=== PATIENT | female | born 1990 | race Caucasian/White ===

== ENCOUNTER 2024-09-19 13:03 | Emergency (ER) | payer MEDICAID, SELFPAY ==
--- NOTE | ~2024-09-19 | CT_ITS ---
EXAMINATION: CT HEAD WITHOUT CONTRAST CLINICAL INFORMATION: Headache. COMPARISON: None available. TECHNIQUE: Contiguous axial imaging was performed from the skull base to vertex without intravenous administration of contrast. This CT examination was performed using dose optimization techniques as appropriate, variously including the following: *Automated exposure control *Adjustment of mA and/or kV according to patient size (this includes techniques or standardized protocols for targeted exams where dose is matched to indication/reason for exam; i.e. extremities or head) *Use of iterative reconstruction technique DLP: 581 mGy-cm FINDINGS: No intracranial hemorrhage, large infarction, or mass lesion is seen. No extra-axial collection is appreciated. The ventricles are normal in size and configuration without evidence of hydrocephalus. Complete opacification of the right maxillary sinus and of a right anterior ethmoid air cell. The mastoid air cells are clear. CT/CT head/brain wo IV con IMPRESSION: No acute intracranial finding. Complete opacification of the right maxillary sinus and of a right anterior ethmoid air cell. Electronically signed by: Lukas Escalante MD 09/19/2024 04:01 PM [facility]
[2024-09-19 13:11] VITALS: BP 126/72; PULSE 122; RESP 16; TEMP 36.4; O2SAT 100; BMI 31.6
--- NOTE | 2024-09-19 13:14 | ED.HA ---
HPI - Headache General Chief Complaint: Headache Stated Complaint: headache Time Seen by Provider: 09/19/24 19:01 Source: patient Limitations: no limitations History of Present Illness ED Provider: Ada Cazares PA-C HPI Narrative: 34-year-old female presents with headache x5 days. Headache is posterior and right-sided, has been constant. Denies neck pain, fever, heavy lifting, recent cough or cold symptoms. Denies head trauma or use of blood thinners. Related Data Allergies Allergy/AdvReac Type Severity Reaction Status Date / Time No Known Allergies Allergy Verified 09/19/24 13:15 Review of Systems Review of Systems: Yes all other systems are reviewed and are negative Constitutional: Constitutional: Denies fatigue, Denies fever(s) and Reports headache(s) Eyes: Eyes: Denies change in vision ENT: Reports headache(s), Denies neck pain, Denies sinus pain and Denies sinus pressure Cardiovascular: Cardiovascular: Denies chest pain and Denies dyspnea Respiratory: Respiratory: Denies cough and Denies dyspnea Gastrointestinal: Gastrointestinal: Denies abdominal pain, Reports nausea and Denies vomiting Musculoskeletal: Musculoskeletal: Denies neck pain, Denies numbness and Denies tingling Neurologic: Reports headache(s), Denies numbness and Denies tingling Endocrine: Endocrine: Denies fatigue [facility] Past Medical History Attestation statement: The following information was validated with the patient. Social History Social History Smoked in Last 30 Days: No Advance Directives: No Advance Directives Information Provided: No Patient : No Physical Exam Vital Signs: Vital Signs: Last Vital Signs Temp 97.9 F 09/19/24 19:14 Pulse 84 09/19/24 19:14 Resp 16 09/19/24 19:14 BP 118/70 09/19/24 19:14 Pulse Ox 98 09/19/24 19:14 O2 Del Method Room Air 09/19/24 19:14 BMI result Body Mass Index 31.6 Const: Other: Alert, well-appearing Orientation/consciousness: patient oriented x3 Neck: Other: Full range of motion Resp: Other: Nonlabored respirations Cardio: Other: Normal peripheral perfusion Skin: Other: Warm dry no rash Neuro: General: patient oriented x3, gait normal, no focal motor deficits and CN's II-XI intact bilaterally Psych: Other: Calm cooperative Course Course Course Narrative: This is an RME: Additional HPI, ROS, PE not included below will be deferred to primary provider. RME assessment and note performed by: Luciana Borjas PA-C This is a [id number]-female, with no known medical problems, who presents emergency department with complaints of right-sided headache x 5 days. Patient found to be tachycardic at 122 she has no chest pain or shortness for breath. no focal deficits on exam. Plan: Labs, EKG, CT head Medications Administered Discontinued Medications Generic Name Dose Route Start Last Admin Trade Name Mauri PRN Reason Stop Dose Admin Dexamethasone Sodium Phosphate 10 mg 09/19/24 19:15 09/19/24 19:47 Dexamethasone Sod Phosphate 10 Mg/Ml Vial IVPUSH 09/19/24 19:16 10 mg ONCE ONE Administration Diphenhydramine HCl 25 mg 09/19/24 19:15 09/19/24 19:47 Diphenhydramine Hcl 50 Mg/Ml Vial IVPUSH 09/19/24 19:16 25 mg ONCE ONE Administration Sodium Chloride 500 mls @ 500 mls/hr 09/19/24 19:15 09/19/24 20:34 Ns IV 09/19/24 20:14 Infused .Q1H ONE Infusion Ketorolac Tromethamine 15 mg 09/19/24 19:15 09/19/24 19:47 Ketorolac Tromethamine 15 Mg/Ml Vial IVPUSH 09/19/24 19:16 15 mg ONCE ONE Administration Prochlorperazine Edisylate 10 mg 09/19/24 19:15 09/19/24 19:47 Prochlorperazine Edisylate 10 Mg/2 Ml Vial IVPUSH 09/19/24 19:16 10 mg ONCE ONE Administration Medical Decision Making Medical Decision Making MDM Narrative: 34-year-old female presents with headache x5 days. Headache is posterior and right-sided, has been constant. Denies neck pain, fever, heavy lifting, recent cough or cold symptoms. Denies head trauma or use of blood thinners. No relevant chronic issues History: Per patient I have considered the following differential diagnoses: Migraine, tension headache, meningitis, VAD, intracranial hemorrhage, Plan: Patient here with a headache with some migraine type features. There was no preceding heavy lifting to suggest VAD, and furthermore she is neurologically intact. Thought about intracranial hemorrhage, however there has been no head trauma she is not on blood thinners. Thought about meningitis, however she has no associated fever, neck pain and no meningeal signs on exam. We will treat for migraine type headache. To note CT scan was obtained from triage and screening labs. I have independently reviewed the following tests: Labs: No leukocytosis, not anemic, no electrolyte abnormality, urine not infected CT brain: CT/CT head/brain wo IV con IMPRESSION: No acute intracranial finding. Complete opacification of the right maxillary sinus and of a right anterior ethmoid air cell. Electronically signed by: Lukas Escalante MD 09/19/2024 04:01 PM [facility] Lab Data 09/19/24 13:38 09/19/24 13:38 Labs: Lab Results 09/19/24 09/19/24 Range/Units 13:38 15:10 WBC 10.2 (4.8-10.8) X10*3/uL RBC 4.88 (4.20-5.50) X10*6/uL Hgb 10.7 L (12.0-16.0) g/dl Hct 34.4 L (37.0-47.0) % MCV 70.5 L (80.0-98.0) fL MCH 21.9 L (27.0-33.0) pg MCHC 31.1 (31.0-35.0) g/dl RDW 19.0 H (11.0-16.0) % Plt Count 382 (160-400) X10*3/uL MPV 8.3 L (9.4-12.3) fL Immature Gran % (Auto) 0.2 (0.0-0.4) % Neut % (Auto) 60.5 (45-73) % Lymph % (Auto) 30.4 (20-40) % [facility] % (Auto) 7.4 (2-11) % Eos % (Auto) 1.0 (0-4) % Baso % (Auto) 0.5 (0-2) % Lymph # (Auto) 3.1 (1.2-4.9) X10*3/uL [facility] # (Auto) 0.8 (0.1-1.2) X10*3/uL Eos # (Auto) 0.1 (0.0-0.4) X10*3/uL Baso # (Auto) 0.1 (0.0-0.2) X10*3/uL Abs Immat Gran (auto) 0.02 (0.00-0.03) X10*3/uL Absolute Neuts (auto) 6.2 (2.0-8.3) x10*3/uL Absolute Nucleated RBC 0.000 (0.0-0.012) X10*3/uL Nucleated RBC % (auto) 0.0 (0.0-0.2) /100WBC Sodium 139 (135-145) mmol/L Potassium 3.7 (3.3-5.1) mmol/L Chloride 109 H (96-108) mmol/L Carbon Dioxide 24 (22-29) mmol/L Anion Gap 10 L (12-20) BUN 9 (9-16) mg/dL Creatinine 0.68 (0.5-1.4) mg/dL Estim Creat Clear Calc 119.4 Estimated GFR > 60 Random Glucose 113 (60-115) mg/dL Calcium 9.0 (8.4-10.2) mg/dL Magnesium 2.1 (1.6-2.6) mg/dL Total Bilirubin 0.2 (0.0-1.0) mg/dL AST 25 (5-31) U/L ALT 18 (0-31) U/L Alkaline Phosphatase 84 (39-117) U/L Troponin I High Sens < 2.7 (<3.5-17.0) ng/L Total Protein 7.4 (6.5-8.0) g/dL Albumin 3.8 (3.5-5.0) g/dL Beta HCG, Quant < 2 mIU/mL Urine Color Yellow Urine Appearance Clear Urine pH 5.5 (5.0-9.0) Ur Specific [place] >= 1.030 H (1.005-1.025) Urine Protein Negative (Neg-Trace) mg/dL Urine Glucose (UA) Negative (Negative) mg/dL Urine Ketones Trace (Negative) mg/dL Urine Blood Negative (Negative) Urine Nitrite Negative (Negative) Ur Leukocyte Esterase Trace H (Negative) Urine RBC 0-2 (0-2) /HPF Urine WBC 0-5 (0-5) /HPF Ur Squamous Epith Cells 3-5 (0-2) /HPF Urine Bacteria 2+ (None Seen) Hyaline Casts 0-2 (0-2) /LPF Discharge Plan Discharge Clinical Impression: Headache, Sinus congestion Patient Disposition: Home, Self-Care Instructions: General Headache (ED) Additional Instructions: You were treated for a migraine type headache, you responded to therapy. The CT scan of your brain was normal, you were incidentally found to have sinus congestion. Follow up with your primary care provider as needed. Stand Alone Forms: Work/School Release Print Language: Irish
--- NOTE | 2024-09-19 13:16 | ECG_ITS ---
Test Reason : TACHYCARDIA Blood Pressure : / mmHG Vent. Rate : 109 BPM Atrial Rate : 109 BPM P-R Int : 126 ms QRS Dur : 068 ms QT Int : 322 ms P-R-T Axes : 053 012 008 degrees QTc Int : 433 ms Sinus tachycardia Otherwise normal ECG No previous ECGs available Referred By: Luciana Borjas Electronically Signed By:BOSSMAN VIEYRA MD
[2024-09-19 13:43] LABS: MANUAL DIFF FLAG NO
[2024-09-19 13:46] LABS: Basophils Absolute Auto 0.1 X10*3/uL (0.0-0.2); Basophils Percent Auto 0.5 % (0-2); Eosinophils Absolute Auto 0.1 X10*3/uL (0.0-0.4); Hematocrit 34.4 % (37.0-47.0); Hemoglobin 10.7 g/dl (12.0-16.0); Imm Gran Abs Auto 0.02 X10*3/uL (0.00-0.03); Imm Gran Pct Auto 0.2 % (0.0-0.4); Lymphocytes Absolute Auto 3.1 X10*3/uL (1.2-4.9); Lymphocytes Percent Auto 30.4 % (20-40); Mean Corpuscular HGB Conc 31.1 g/dl (31.0-35.0); Mean Corpuscular Hemoglobin 21.9 pg (27.0-33.0); Mean Corpuscular Volume 70.5 fL (80.0-98.0); Mean Platelet Volume 8.3 fL (9.4-12.3); Monocytes Absolute Auto 0.8 X10*3/uL (0.1-1.2); Monocytes Percent Auto 7.4 % (2-11); Neutrophils Absolute Auto 6.2 x10*3/uL (2.0-8.3); Neutrophils Percent Auto 60.5 % (45-73); Platelet Count 382 X10*3/uL (160-400); Red Blood Count 4.88 X10*6/uL (4.20-5.50); White Blood Count 10.2 X10*3/uL (4.8-10.8)
[2024-09-19 14:05] LABS: Alanine Aminotransferase 18 U/L (0-31); Albumin Level 3.8 g/dL (3.5-5.0); Alkaline Phosphatase 84 U/L (39-117); Anion Gap 10 (12-20); Aspartate Amino Transferase 25 U/L (5-31); Bilirubin Total 0.2 mg/dL (0.0-1.0); Blood Urea Nitrogen 9 mg/dL (9-16); Carbon Dioxide 24 mmol/L (22-29); Chloride 109 mmol/L (96-108); Creatinine Clr Calc Pharmacy 119.4; Estimated Glomerular Filt Rate > 60; Glucose Random 113 mg/dL (60-115); HCG Quantitative < 2 mIU/mL; Magnesium 2.1 mg/dL (1.6-2.6); Potassium 3.7 mmol/L (3.3-5.1); Sodium 139 mmol/L (135-145); Total Protein 7.4 g/dL (6.5-8.0); Troponin-I High Sensitivity < 2.7 ng/L (<3.5-17.0)
[2024-09-19 15:16] LABS: Appearance Urine Clear; Color Urine Yellow; Glucose Urine UA Negative (Negative); Leukocyte Esterase Urine Trace (Negative); Nitrite Urine Negative (Negative); PH 5.5 (5.0-9.0); Specific Gravity - Urine >= 1.030 (1.005-1.025); UMIC TRIGGER UACC YES; Urine Blood Negative (Negative); Urine Ketones Trace mg/dL (Negative); Urine Protein Negative (Neg-Trace)
[2024-09-19 16:50] LABS: Bacteria Urine 2+ (None Seen); Hyaline Casts Urine 0-2 /LPF (0-2); WBC Urine 0-5 /HPF (0-5)
[2024-09-19 16:55] LABS: RBC Urine 0-2 /HPF (0-2)
[2024-09-19 19:14] VITALS: BP 118/70; PULSE 84; RESP 16; TEMP 36.6; O2SAT 98
[2024-09-19] MEDS: 0.9 % Sodium Chloride 500 ML IV (19:33)
[2024-09-19] MEDS: dexAMETHasone sod phosphate 10 MG/ML VIAL IVPUSH (19:47)
[2024-09-19] MEDS: Ketorolac Tromethamine 15 MG/ML VIAL IVPUSH (19:47)
[2024-09-19] MEDS: Prochlorperazine Edisylate 10 MG/2 ML VIAL IVPUSH (19:47)
[2024-09-19] MEDS: diphenhydrAMINE HCL 50 MG/ML VIAL 25 MG IVPUSH (19:47)
[2024-09-19 22:09] VITALS: BP 105/64; PULSE 89; RESP 16; TEMP 36.6; O2SAT 100
[2024-09-19 22:10] VITALS: BP 105/64; PULSE 89; RESP 16; TEMP 36.6; O2SAT 100
== END 2024-09-19 22:10 | disposition home or self-care (01) ==
PROVIDERS: Physician Assistant Medical; Emergency Provider Internal Medicine
DX: R51.9 Headache, unspecified (principal); R09.81 Nasal congestion
CPT/HCPCS: 36415; 70450; 80053; 81001; 83735; 84484; 84702; 85025; 93005; 96361; 96374; 96375; 99284; 99285; J0737; J1100; J1200; J1885

== ENCOUNTER → 2024-09-19 13:16 | Outpatient (BNV) | payer MEDICAID, SELFPAY | PROVIDERS: Emergency Provider Internal Medicine; Visit Provider Internal Medicine Cardiovascular Disease | DX: R00.0 Tachycardia, unspecified (principal) | CPT/HCPCS: 93010 ==

== ENCOUNTER 2024-12-22 08:28 | Outpatient (REF) | payer MEDICAID, SELFPAY ==
[2024-12-22 11:06] LABS: MANUAL DIFF FLAG NO
[2024-12-22 11:18] LABS: Basophils Absolute Auto 0.1 X10*3/uL (0.0-0.2); Basophils Percent Auto 0.5 % (0-2); Eosinophils Absolute Auto 0.1 X10*3/uL (0.0-0.4); Eosinophils Percent Auto 0.7 % (0-4); Hematocrit 32.2 % (37.0-47.0); Hemoglobin 9.8 g/dl (12.0-16.0); Imm Gran Abs Auto 0.03 X10*3/uL (0.00-0.03); Imm Gran Pct Auto 0.3 % (0.0-0.4); Lymphocytes Absolute Auto 2.9 X10*3/uL (1.2-4.9); Lymphocytes Percent Auto 29.6 % (20-40); Mean Corpuscular HGB Conc 30.4 g/dl (31.0-35.0); Mean Corpuscular Volume 72.2 fL (80.0-98.0); Mean Platelet Volume 8.9 fL (9.4-12.3); Monocytes Absolute Auto 0.6 X10*3/uL (0.1-1.2); Monocytes Percent Auto 6.1 % (2-11); Neutrophils Absolute Auto 6.1 x10*3/uL (2.0-8.3); Neutrophils Percent Auto 62.8 % (45-73); Platelet Count 387 X10*3/uL (160-400); Red Blood Count 4.46 X10*6/uL (4.20-5.50); White Blood Count 9.8 X10*3/uL (4.8-10.8)
[2024-12-22 11:49] LABS: Estimated Average Glucose 126 mg/dL; Total Hemoglobin (HGBA1C) 3191.6373 umol/L
[2024-12-22 12:04] LABS: Alanine Aminotransferase 22 U/L (0-31); Albumin Level 3.6 g/dL (3.5-5.0); Alkaline Phosphatase 80 U/L (39-117); Anion Gap 9 (12-20); Aspartate Amino Transferase 34 U/L (5-31); Bilirubin Direct < 0.2 mg/dL (0.0-0.5); Bilirubin Total 0.2 mg/dL (0.0-1.0); Blood Urea Nitrogen 8 mg/dL (9-16); Calcium 8.4 mg/dL (8.4-10.2); Carbon Dioxide 24 mmol/L (22-29); Chloride 110 mmol/L (96-108); Cholesterol 138 mg/dL (<200); Estimated Glomerular Filt Rate > 60; Glucose Random 91 mg/dL (60-115); HDL Cholesterol 45 mg/dL (>40); LDL Cholesterol Calculated 81 mg/dL (<100); Potassium 3.9 mmol/L (3.3-5.1); Sodium 139 mmol/L (135-145); Total Protein 7.4 g/dL (6.5-8.0); Triglycerides 64 mg/dL (<150)
[2024-12-22 12:20] LABS: TSH reflex Free T4 1.27 uIU/mL (0.32-4.0)
[2024-12-22 13:12] LABS: CT PCR NOT DETECTED (Not Detect.); NG PCR NOT DETECTED (Not Detect.)
[2024-12-23 07:59] LABS: Syphilis Screen Nonreactive (Nonreactive)
[2024-12-23 08:03] LABS: HIV AB/AG Nonreactive (Nonreactive); HIV Num 1 0.05 S/CO (0.00-0.99); ~HepC Num1 0.07 S/CO (0.00-0.79); ~Hepatitis C Antibody Nonreactive (Nonreactive)
== END 2024-12-22 08:29 | disposition home or self-care (01) ==
LOC: HO.HHCL 08:28
PROVIDERS: Visit Provider Family Medicine
DX: R73.03 Prediabetes (principal); Z11.3 Encounter for screening for infections with a predominantly sexual mode of transmission; R22.1 Localized swelling, mass and lump, neck; E66.9 Obesity, unspecified
CPT/HCPCS: 80048; 80061; 80076; 83036; 84443; 85025; 86780; 86803; 87389; 87491; 87591

== ENCOUNTER 2025-05-27 21:27 | Emergency (ER) | payer MEDICAID, SELFPAY ==
[2025-05-27 21:39] VITALS: BP 120/72; PULSE 101; RESP 18; TEMP 36.8; O2SAT 100; BMI 32.2
[2025-05-27 21:56] LABS: MANUAL DIFF FLAG NO
[2025-05-27 21:58] LABS: Hematocrit 33.0 % (37.0-47.0); Hemoglobin 10.2 g/dl (12.0-16.0); Imm Gran Abs Auto 0.04 X10*3/uL (0.00-0.03); Imm Gran Pct Auto 0.3 % (0.0-0.4); Lymphocytes Absolute Auto 3.3 X10*3/uL (1.2-4.9); Mean Corpuscular HGB Conc 30.9 g/dl (31.0-35.0); Mean Corpuscular Hemoglobin 22.2 pg (27.0-33.0); Mean Corpuscular Volume 71.7 fL (80.0-98.0); NRBC Abs Auto 0.000 X10*3/uL (0.0-0.012); NRBC Pct Auto 0.0 /100WBC (0.0-0.2); Platelet Count 329 X10*3/uL (160-400); Red Blood Count 4.60 X10*6/uL (4.20-5.50); White Blood Count 11.9 X10*3/uL (4.8-10.8)
[2025-05-27 22:11] LABS: Alanine Aminotransferase 31 U/L (0-31); Albumin Level 3.8 g/dL (3.5-5.0); Alkaline Phosphatase 88 U/L (39-117); Anion Gap 11 (12-20); Aspartate Amino Transferase 31 U/L (5-31); Blood Urea Nitrogen 9 mg/dL (9-16); Calcium 8.2 mg/dL (8.4-10.2); Carbon Dioxide 24 mmol/L (22-29); Chloride 108 mmol/L (96-108); Creatinine Clr Calc Pharmacy 108.5; Estimated Glomerular Filt Rate > 60; Potassium 3.8 mmol/L (3.3-5.1); Sodium 139 mmol/L (135-145); Total Protein 7.0 g/dL (6.5-8.0)
[2025-05-27 23:45] VITALS: BP 116/69; PULSE 85; RESP 16; TEMP 36.6; O2SAT 100
[2025-05-27 23:56] LABS: Appearance Urine Clear; Glucose Urine UA Negative (Negative); PH 5.5 (5.0-9.0); Specific Gravity - Urine 1.020 (1.005-1.025); UMIC TRIGGER UACC YES
[2025-05-28 00:02] LABS: UACC Culture Trigger YES
--- NOTE | 2025-05-28 01:21 | ED_ITS ---
HPI - Female Genitourinary General Chief complaint: Urogenital-Female Stated complaint: infection / abd pain Time Seen by Provider: 05/28/25 01:12 Source: patient Mode of arrival: ambulatory Limitations: no limitations History of Present Illness ED Provider: Greg GARCIA HPI Narrative: The patient is a 35-year-old female presenting to the ED for evaluation of 1 week of urinary frequency with associated foul-smelling urine, and pain in the suprapubic region radiating to the back. Patient denies associated fever/chills, nausea, vomiting, or other systemic complaint. Patient denies associated hematuria, vaginal discharge, irregular vaginal bleeding. Related Data Previous Rx's ?Medication ?Instructions ?Recorded nitrofurantoin 100 mg PO BID #10 caps 05/28 monohydrate/macrocrystals 100 mg capsule (Macrobid) phenazopyridine 100 mg tablet 100 mg PO TID 6 doses #6 tabs 05/28/25 (Pyridium) Allergies Allergy/AdvReac Type Severity Reaction Status Date / Time cyclobenzaprine (From Allergy Unconscious Verified 05/27/25 21:41 Flexeril) morphine Allergy Rash Verified 05/27/25 21:41 tramadol Allergy Unconscious Verified 05/27/25 21:41 Review of Systems 2 Review of Systems: Yes all other systems are reviewed and are negative PMFSH Social History Social History (System 12/01/24 @ 14:37 by Jie Antoine) Smoked in Last 30 Days: No Use of substances other than those prescribed or required for medical reasons: No Advance Directives: No Advance Directives Information Provided: No Do you have a plan to hurt others: No Plan Physical Exam 2 Vital Signs: Vital Signs: Last Vital Signs Temp 98 F 05/27/25 23:45 Pulse 85 05/27/25 23:45 Resp 16 05/27/25 23:45 BP 116/69 05/27/25 23:45 Pulse Ox 100 05/27/25 23:45 O2 Del Method Room Air 05/27/25 23:45 BMI result Body Mass Index 32.2 CONSTITUTIONAL: The patient appears non-toxic, well nourished and in no acute distress. Vital signs as documented. HEAD: Atraumatic, normocephalic. EYES: EOMs grossly intact, pupils equal, conjunctiva clear, no exudate. ENT: Nares patent, no discharge. Airway patent, no audible stridor, visible mucosa is pink and moist without noted lesions. NECK: Trachea is midline, no obvious masses or gross abnormalities. CHEST: Symmetric movement, normal appearance. LUNGS: LS present and CTAB, no w/r/r. Non-labored work of breathing. CARDIAC: Regular Rhythm, S1/S2 appreciated, no murmurs, rubs or gallops. ABDOMEN: Abdomen soft and non-tender x4 quadrants, mild tenderness of the suprapubic region, negative rebound, no palpable masses or organomegaly. Negative CVAT bilaterally. : Deferred. EXTREMITIES: Normal tone, moves all extremities spontaneously without reported pain. No obvious acute injury or deformity noted. NEURO: Alert and oriented x3, CN II-XII appear grossly intact. Cerebellar Functioning grossly intact. No obvious sensory or motor deficits. Speech clear and appropriate. PSYCH: normal affect, appropriate eye contact, fluid speech, with appropriate response to questioning. No reported suicidality or homicidality. SKIN: Warm, dry, color appropriate, normal turgor. No rashes noted. Medical Decision Making Medical Decision Making [facility] Narrative: 1:23 AM 05/28/2025 (José Luis GARCIA): The patient is a 35-year-old female presenting to the ED for evaluation of 1 week of foul-smelling urine with associated suprapubic abdominal pain radiating into the back, without other systemic symptoms. The patient's exam reveals mild suprapubic tenderness without CVA tenderness. The patient's laboratory evaluation shows mild leukocytosis of 11.9, no significant anemia, electrolyte abnormality, or STEPHANY. The patient's urinalysis does show moderate leukocyte esterase with 21-50 WBCs, and 1+ bacteria, no blood, does not appear contaminated. The patient is likely suffering from a UTI without evidence of pyelonephritis. Patient will be treated with Pyridium and Macrobid. Patient will be discharged to follow up with PCP. Admission/Observation Consideration of admission/observation: Escalation of care including admission/observation considered Lab Data [facility] Lab Attestation statement: I reviewed the patient's lab results. 05/27/25 21:53 05/27/25 21:53 Labs: Lab Results 05/27/25 05/27/25 Range/Units 21:53 23:50 WBC 11.9 H (4.8-10.8) X10*3/uL RBC 4.60 (4.20-5.50) X10*6/uL Hgb 10.2 L (12.0-16.0) g/dl Hct 33.0 L (37.0-47.0) % MCV 71.7 L (80.0-98.0) fL MCH 22.2 L (27.0-33.0) pg MCHC 30.9 L (31.0-35.0) g/dl RDW 18.3 H (11.0-16.0) % Plt Count 329 (160-400) X10*3/uL MPV 8.7 L (9.4-12.3) fL Immature Gran % (Auto) 0.3 (0.0-0.4) % Neut % (Auto) 63.2 (45-73) % Lymph % (Auto) 27.9 (20-40) % [place] % (Auto) 7.3 (2-11) % Eos % (Auto) 0.8 (0-4) % Baso % (Auto) 0.5 (0-2) % Lymph # (Auto) 3.3 (1.2-4.9) X10*3/uL [place] # (Auto) 0.9 (0.1-1.2) X10*3/uL Eos # (Auto) 0.1 (0.0-0.4) X10*3/uL Baso # (Auto) 0.1 (0.0-0.2) X10*3/uL Abs Immat Gran (auto) 0.04 H (0.00-0.03) X10*3/uL Absolute Neuts (auto) 7.5 (2.0-8.3) x10*3/uL Absolute Nucleated RBC 0.000 (0.0-0.012) X10*3/uL Nucleated RBC % (auto) 0.0 (0.0-0.2) /100WBC Sodium 139 (135-145) mmol/L Potassium 3.8 (3.3-5.1) mmol/L Chloride 108 (96-108) mmol/L Carbon Dioxide 24 (22-29) mmol/L Anion Gap 11 L (12-20) BUN 9 (9-16) mg/dL Creatinine 0.75 (0.5-1.4) mg/dL Estim Creat Clear Calc 108.5 Estimated GFR > 60 Random Glucose 113 (60-115) mg/dL Calcium 8.2 L (8.4-10.2) mg/dL Total Bilirubin 0.1 (0.0-1.0) mg/dL AST 31 (5-31) U/L ALT 31 (0-31) U/L Alkaline Phosphatase 88 (39-117) U/L Total Protein 7.0 (6.5-8.0) g/dL Albumin 3.8 (3.5-5.0) g/dL Urine Color Yellow Urine Appearance Clear Urine pH 5.5 (5.0-9.0) Ur Specific [place] 1.020 (1.005-1.025) Urine Protein Negative (Neg-Trace) mg/dL Urine Glucose (UA) Negative (Negative) mg/dL Urine Ketones Negative (Negative) mg/dL Urine Blood Negative (Negative) Urine Nitrite Negative (Negative) Ur Leukocyte Esterase Moderate (2+) H (Negative) Urine RBC 0-2 (0-2) /HPF Urine WBC 21-50 H (0-5) /HPF Ur Squamous Epith Cells 3-5 (0-2) /HPF Urine Bacteria 1+ (None Seen) Hyaline Casts 0-2 (0-2) /LPF Tests considered The following testing was considered but not selected: CT abd pelvis Discharge Plan Discharge Clinical Impression: Urinary tract infection Patient Disposition: Home, Self-Care Instructions: Urinary Tract Infection in Women (ED) Additional Instructions: Thank you for choosing [facility]'s Emergency Department for your care today. Thankfully your laboratory evaluation today showed no evidence of a systemic infection or infection in your kidneys. Your urinalysis however does show evidence of a urinary tract infection. At this time there is no indication for admission to the hospital or continued ED observation, and it is safe to discharge you home. Please take Macrobid as prescribed until it is finished. Please take Pyridium as is prescribed to relieve discomfort with urination. The Pyridium will turn your urine bright orange, this is normal. You may take alternating (staggered) doses of ibuprofen 600mg and Tylenol 1000mg every 4 hours as needed for any additional pain. Please stay well hydrated and get plenty of rest. Please follow up with your primary care physician for re-evaluation, additional management of your symptoms, and continued preventative care. If you do not have a primary care physician, please call the [facility] at [phone] to establish a new primary care physician. While waiting to establish your new primary care physician, you can call our Walk-in [facility] at [phone] for non-emergency needs. Please return to the emergency department if you develop a severe or sudden change in your symptoms, a fever over 100.4 that does not improve with Tylenol or Ibuprofen, recurrent vomiting, or any other new or worsening symptoms or concerns. Prescriptions: New nitrofurantoin monohyd/m-cryst [Macrobid] 100 mg capsule 100 mg PO BID Qty: 10 0RF Rx Instructions: must administer with a meal/food phenazopyridine [Pyridium] 100 mg tablet 100 mg PO TID Qty: 6 0RF Referrals: Lakshmi iNchols MD [Primary Care Provider, Family Practice] Clinical Impression: Urinary tract infection Print Language: Mongolian
[2025-05-28 01:55] VITALS: BP 116/69; PULSE 85; RESP 16; TEMP 36.6; O2SAT 100
== END 2025-05-28 01:55 | disposition home or self-care (01) ==
PROVIDERS: Emergency Provider Emergency Medicine; PCP Family Medicine
DX: N39.0 Urinary tract infection, site not specified (principal)
CPT/HCPCS: 36415; 80053; 81001; 85025; 87086; 87147; 99283; 99284

== ENCOUNTER 2025-05-30 16:29 | Emergency (ER) | payer MEDICAID, SELFPAY ==
--- NOTE | ~2025-05-30 | CT_ITS ---
CLINICAL HISTORY: Left flank left abdominal pain. Pyelonephritis? CT abdomen and pelvis without contrast Comparison: None provided Findings: The lung bases are clear. Unremarkable gallbladder and solid organs. No hydronephrosis or urolithiasis. No bowel obstruction, pneumoperitoneum, or pneumatosis. Pelvic contents unremarkable. Normal appendix. No acute fracture. IMPRESSION: No acute findings. This document has been electronically signed by: Emil Ferguson MD on 05/30/2025 19:54:32
[2025-05-30 17:19] VITALS: BP 110/63; PULSE 99; RESP 16; TEMP 37; O2SAT 99; BMI 32.4
--- NOTE | 2025-05-30 17:26 | ED_ITS ---
HPI - Female Genitourinary General Chief complaint: Urogenital-Female Stated complaint: abd pain / N/V was seen for same thing days ago Time Seen by Provider: 05/30/25 19:09 Source: patient Mode of arrival: ambulatory Limitations: no limitations History of Present Illness ED Provider: Dr. Deja Wilson HPI Narrative: Patient comes to the emergency room complaining of left-sided flank pain. Patient states that 2 days ago she was diagnosed with a UTI. Patient has been taking Macrobid and azo for symptomatic treatment. Patient states that now the pain is radiating from the suprapubic area to the left flank. Constant, nonradiating. Patient states that she is still having dysuria and frequency. Denies nausea vomiting or diarrhea. Related Data Previous Rx's ?Medication ?Instructions ?Recorded nitrofurantoin 100 mg PO BID #10 caps 05/28 monohydrate/macrocrystals 100 mg capsule (Macrobid) phenazopyridine 100 mg tablet 100 mg PO TID 6 doses #6 tabs 05/28/25 (Pyridium) levofloxacin 500 mg tablet 500 mg PO DAILY #9 tabs Allergies Allergy/AdvReac Type Severity Reaction Status Date / Time cyclobenzaprine (From Allergy Unconscious Verified 05/30/25 17:22 Flexeril) morphine Allergy Rash Verified 05/30/25 17:22 tramadol Allergy Unconscious Verified 05/30/25 17:22 Review of Systems 2 Review of Systems: Constitutional : No Weight loss, No Fever, No Chills, No Night Sweats, No Fatigue, No Malaise ENT/Mouth : No Hearing loss, No Ear Pain, No Nasal Congestion, No Sinus Pain, No Hoarseness, No sore throat, No Rhinorrhea, No Swallowing Difficulty Eyes: No Eye Pain, No Swelling, No Redness, No Foreign Body, No Discharge, No Vision Changes Cardiovascular : No Chest Pain, No SOB, No Dyspnea on Exertion, No Orthopnea, No Edema, No Palpitations Respiratory : No Cough, No Sputum, No Wheezing, No Smoke Exposure, No Dyspnea Gastrointestinal : No Nausea, No Vomiting, No Diarrhea, No Constipation, No abdominal Pain, No Hematochezia, No Melena Genitourinary : no irregular bleeding, complaining of dysuria and frequency, No Hematuria, No Urinary Incontinence, No Urgency, complaining of left-sided Flank Pain, No Urinary Flow Changes, No Hesitancy Musculoskeletal : No joint pain, No Myalgias, No Joint Swelling Skin : No Skin Lesions, No rash Neuro : No Weakness, No Numbness, No Paresthesias, No Loss of Consciousness, No Dizziness, No Headache Psych : No Anxiety/Panic, No Depression, No SI/HI/AH/VH, No Social Issues, Heme/Lymph: No Bruising, No Bleeding,No Lymphadenopathy Endocrine : No Polyuria, No Polydipsia, No Temperature Intolerance [facility] Social History Social History (System 12/01/24 @ 14:37 by Jie Antoine) Alcohol intake: current Alcohol intake frequency: holidays/special occasions only Smoked in Last 30 Days: No Use of substances other than those prescribed or required for medical reasons: No Advance Directives: Yes Advance Directives Information Provided: No Advance Directives on File: No Patient : No Physical Exam 2 Exam: Exam: Appearance: Alert. Oriented X3. No acute distress. Eyes: Pupils equal, round and reactive to light. ENT: Pharynx normal. Neck: Normal inspection. Neck supple. No lymph nodes noted. No crepitus CVS: Normal heart rate and rhythm. Pulses normal. Normal S1 and S2 Respiratory: No respiratory distress. Breath sounds normal. No Wheezing. No rales Abdomen: Soft , moderate discomfort to palpation in the left lower quadrant and mild CVA tenderness on the left, no rebound or guarding, No rigidity. No distention. Skin: Skin warm and dry. Normal skin color. Normal skin turgor. Extremities: No lower extremity edema. No Lacerations. No Rash Neuro: Oriented X 3. No motor deficit. No sensory deficit. Moving all extremities. No slurred speech. CN 2 through 12 grossly intact Psych: calm, cooperative, normal affect Vital Signs: Vital Signs: Last Vital Signs Temp 98.0 F 05/30/25 21:42 Pulse 76 05/30/25 21:42 Resp 16 05/30/25 21:42 BP 110/54 L 05/30/25 21:42 Pulse Ox 99 05/30/25 21:42 O2 Del Method Room Air 05/30/25 21:42 BMI result Body Mass Index 32.4 Course Course Course Narrative: RME: 35-year-old female presents to ED for left flank left abdominal pain. Patient recently being treated as UTI currently on antibiotics. Patient complaining of urinary burning and frequency. Labs abdominal CT scan UA ordered Medications Administered Discontinued Medications Generic Name Dose Route Start Last Admin Trade Name Mauri PRN Reason Stop Dose Admin Acetaminophen 650 mg 05/30/25 19:39 05/30/25 20:05 Acetaminophen 325 Mg Tablet PO 05/30/25 19:40 650 mg ONCE ONE Administration Ibuprofen 600 mg 05/30/25 19:39 05/30/25 20:05 Ibuprofen 600 Mg Tablet PO 05/30/25 19:40 600 mg ONCE ONE Administration Levofloxacin 500 mg 05/30/25 19:37 05/30/25 20:05 Levofloxacin 500 Mg Tablet PO 05/30/25 19:38 500 mg ONCE ONE Administration Medical Decision Making Medical Decision Making [facility] Narrative: My interpretation of labs: Patient's white blood cell count is 12. Rest of hematology at baseline. Patient is chronically anemic. Patient's chemistry does not show any acute abnormality, normal renal function. Urinalysis shows trace white blood cells, squamous epithelial cells, no nitrites or leukocytes. However, patient is still undergoing treatment with Macrobid. CT scan does not show stones Given patient's recent history of UTI and flank pain, we will treat as pyelonephritis. Sepsis is not suspected. Patient's antibiotics were switched to levofloxacin. First dose given in the emergency room. Patient was given p.o. ibuprofen and Tylenol, patient declined narcotics or IM medications. Differential Diagnosis Differential Diagnoses: The differential diagnosis associated with the presentation includes (UTI, pyelonephritis, ureterolithiasis, musculoskeletal pain) Admission/Observation Consideration of admission/observation: Escalation of care including admission/observation considered (Given patient's recurrent symptoms, observation was considered) Lab Data [facility] Lab Attestation statement: I reviewed the patient's lab results. 05/30/25 18:00 05/30/25 18:00 Labs: Lab Results 05/30/25 Range/Units 18:00 WBC 12.0 H (4.8-10.8) X10*3/uL RBC 4.95 (4.20-5.50) X10*6/uL Hgb 10.9 L (12.0-16.0) g/dl Hct 35.9 L (37.0-47.0) % MCV 72.5 L (80.0-98.0) fL MCH 22.0 L (27.0-33.0) pg MCHC 30.4 L (31.0-35.0) g/dl RDW 18.3 H (11.0-16.0) % Plt Count 350 (160-400) X10*3/uL MPV 8.6 L (9.4-12.3) fL Immature Gran % (Auto) 0.5 H (0.0-0.4) % Neut % (Auto) 69.0 (45-73) % Lymph % (Auto) 23.2 (20-40) % [place] % (Auto) 6.1 (2-11) % Eos % (Auto) 0.7 (0-4) % Baso % (Auto) 0.5 (0-2) % Lymph # (Auto) 2.8 (1.2-4.9) X10*3/uL [place] # (Auto) 0.7 (0.1-1.2) X10*3/uL Eos # (Auto) 0.1 (0.0-0.4) X10*3/uL Baso # (Auto) 0.1 (0.0-0.2) X10*3/uL Abs Immat Gran (auto) 0.06 H (0.00-0.03) X10*3/uL Absolute Neuts (auto) 8.3 (2.0-8.3) x10*3/uL Absolute Nucleated RBC 0.000 (0.0-0.012) X10*3/uL Nucleated RBC % (auto) 0.0 (0.0-0.2) /100WBC Sodium 138 (135-145) mmol/L Potassium 3.4 (3.3-5.1) mmol/L Chloride 107 (96-108) mmol/L Carbon Dioxide 24 (22-29) mmol/L Anion Gap 10 L (12-20) BUN 6 L (9-16) mg/dL Creatinine 0.69 (0.5-1.4) mg/dL Estim Creat Clear Calc 118.2 Estimated GFR > 60 Random Glucose 106 (60-115) mg/dL Calcium 8.5 (8.4-10.2) mg/dL Total Bilirubin 0.2 (0.0-1.0) mg/dL AST 29 (5-31) U/L ALT 33 H (0-31) U/L Alkaline Phosphatase 96 (39-117) U/L Total Protein 7.3 (6.5-8.0) g/dL Albumin 3.9 (3.5-5.0) g/dL Beta HCG, Quant < 2 mIU/mL Urine Color [place] Urine Appearance Clear Urine pH 5.0 (5.0-9.0) Ur Specific [place] 1.015 (1.005-1.025) Urine Protein 30 (1+) H (Neg-Trace) mg/dL Urine Glucose (UA) See Note (Negative) mg/dL Urine Ketones Negative (Negative) mg/dL Urine Blood Negative (Negative) Urine Nitrite See Note (Negative) Ur Leukocyte Esterase See Note (Negative) Urine RBC 0-2 (0-2) /HPF Urine WBC 6-10 H (0-5) /HPF Ur Squamous Epith Cells 3-5 (0-2) /HPF Ur Transition Epith Cell Present Urine Bacteria Trace (None Seen) Hyaline Casts 0-2 (0-2) /LPF Independent Interpretation I performed an independent interpretation of an: CT Scan Radiology Impression Discussion of test interpretation with radiology: I have reviewed the radiologist's reading. Radiologist Impression: The lung bases are clear. Unremarkable gallbladder and solid organs. No hydronephrosis or urolithiasis. No bowel obstruction, pneumoperitoneum, or pneumatosis. Pelvic contents unremarkable. Normal appendix. No acute fracture. IMPRESSION: No acute findings. Critical Care Time Critical Care Time Critical Care Time: Yes Total Critical Care Time: 35 Attestation: I have personally provided critical care time. Time includes review of lab data, radiology results, discussion with consultants, and monitoring for potential decompensation. Intervention performed as documented. Discharge Plan Discharge Clinical Impression: Pyelonephritis Patient Disposition: Home, Self-Care Instructions: Kidney Infection (ED) Additional Instructions: Please follow-up with your primary care physician tomorrow. Please stop taking Macrobid. Please start taking cyclobenzaprine. If you have any worsening or new symptoms, please return to the emergency room or call 911 Prescriptions: New levofloxacin 500 mg tablet 500 mg PO DAILY Qty: 9 0RF No Action nitrofurantoin monohyd/m-cryst [Macrobid] 100 mg capsule 100 mg PO BID Qty: 10 0RF Rx Instructions: must administer with a meal/food phenazopyridine [Pyridium] 100 mg tablet 100 mg PO TID Qty: 6 0RF Stand Alone Forms: Work/School Release Interventions: ED Discharge Assessment Last Done: 05/30/25 21:42 Discharge Date/Time: 05/30/25 21:44 Print Language: Kinyarwanda
[2025-05-30 18:25] LABS: MANUAL DIFF FLAG NO
[2025-05-30 18:27] LABS: Hematocrit 35.9 % (37.0-47.0); Hemoglobin 10.9 g/dl (12.0-16.0); Imm Gran Abs Auto 0.06 X10*3/uL (0.00-0.03); Imm Gran Pct Auto 0.5 % (0.0-0.4); Lymphocytes Absolute Auto 2.8 X10*3/uL (1.2-4.9); Mean Corpuscular HGB Conc 30.4 g/dl (31.0-35.0); Mean Corpuscular Hemoglobin 22.0 pg (27.0-33.0); Mean Corpuscular Volume 72.5 fL (80.0-98.0); NRBC Abs Auto 0.000 X10*3/uL (0.0-0.012); NRBC Pct Auto 0.0 /100WBC (0.0-0.2); Platelet Count 350 X10*3/uL (160-400); Red Blood Count 4.95 X10*6/uL (4.20-5.50); White Blood Count 12.0 X10*3/uL (4.8-10.8)
[2025-05-30 18:31] LABS: Appearance Urine Clear; PH 5.0 (5.0-9.0); Specific Gravity - Urine 1.015 (1.005-1.025); UMIC TRIGGER UACC YES
[2025-05-30 18:41] LABS: UACC Culture Trigger YES
[2025-05-30 18:51] LABS: Alanine Aminotransferase 33 U/L (0-31); Albumin Level 3.9 g/dL (3.5-5.0); Alkaline Phosphatase 96 U/L (39-117); Anion Gap 10 (12-20); Aspartate Amino Transferase 29 U/L (5-31); Blood Urea Nitrogen 6 mg/dL (9-16); Calcium 8.5 mg/dL (8.4-10.2); Carbon Dioxide 24 mmol/L (22-29); Chloride 107 mmol/L (96-108); Creatinine Clr Calc Pharmacy 118.2; Estimated Glomerular Filt Rate > 60; Potassium 3.4 mmol/L (3.3-5.1); Sodium 138 mmol/L (135-145); Total Protein 7.3 g/dL (6.5-8.0)
[2025-05-30 19:49] VITALS: BP 106/67; PULSE 80; RESP 18; TEMP 36.8; O2SAT 100
[2025-05-30 21:42] VITALS: BP 110/54; PULSE 76; RESP 16; TEMP 36.7; O2SAT 99
== END 2025-05-30 21:44 | disposition home or self-care (01) ==
PROVIDERS: Physician Assistant; Emergency Provider Emergency Medicine; PCP Family Medicine
DX: N12 Tubulo-interstitial nephritis, not specified as acute or chronic (principal); R11.2 Nausea with vomiting, unspecified; R10.2 Pelvic and perineal pain; R30.0 Dysuria; R35.0 Frequency of micturition; Z79.899 Other long term (current) drug therapy
CPT/HCPCS: 36415; 74176; 80053; 81001; 84702; 85025; 87086; 99284

== ENCOUNTER → 2025-05-30 17:25 | Outpatient (BNV) | payer MEDICAID, SELFPAY | PROVIDERS: Emergency Provider Emergency Medicine; PCP Family Medicine; Visit Provider Radiology Diagnostic Radiology | DX: R10.12 Left upper quadrant pain (principal) | CPT/HCPCS: 74176 ==

== ENCOUNTER 2025-10-25 12:41 | Outpatient (REF) | payer MEDICAID, SELFPAY ==
--- NOTE | 2025-10-25 13:51 | EMG_ITS ---
Chief complaint:?Pain numbness and tingling in hand and wrist on the right Referred by:?Eduard Cannon MD Procedure done: Right upper extremity NCS/EMG Right median and ulnar motor and sensory studies were performed. Right median and lateral antecubital brachial sensory and radial sensory studies were performed and paraspinal muscles were tested with a needle. Findings: Right median motor distal latencies was mildly prolonged. Right median mixed distal latencies was also mildly prolonged. Otherwise no significant abnormality noted. Impression: Mild right median neuropathy across carpal tunnel Coding:? [id number] 1 extremity MTDD
--- OUTSIDE RECORDS SUMMARY | 2025-10-25 15:49 | XMS_ITS | Clinical Summary ---
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 60 tablet 2 5 Active Additional Information Patient not taking.Reason: Other (no reason given), Reported on 05/20/2025 sertraline (Zoloft) 25 MG tabletIndicatio ns:Major depressive disorder with current active episode, unspecified depression episode severity, unspecified whether recurrent Take 1 tablet (25 mg) by mouth Once per day. 30 tablet 11 5 01/30/20 26 Active ferrous sulfate 325 (65 Fe) MG EC tabletIndicatio ns:Anemia, unspecified type TAKE 1 TABLET BY MOUTH EVERY DAY 90 tablet 1 5 Active Additional Information Patient not taking.Reason: Side effects (constiipation.), Reported on 05/20/2025 tiZANidine (Zanaflex) 2 MG tablet Take 1 tablet (2 mg) by mouth every 8 (eight) hours if needed for muscle spasms. 30 tablet 5 Active lidocaine (Lidoderm) 5 % patch Apply 1 patch topically Once per day. Remove & discard patch within 12 hours or as directed by MD. 30 patch 2 5 09/27/20 26 Active ibuprofen 600 MG tablet Take 1 tablet (600 mg) by mouth if needed in the morning, at noon, and at bedtime for moderate pain or fever for up to 10 days. 30 tablet 5 10/07/20 25 Active Problems Problem Noted Date Diagnosed Date Numbness and tingling in right hand 09/27/2025 Right hand pain 09/27/2025 Sprain of left wrist 04/02/2025 Assessment & Plan (04/02/2025 11:27 AM EDT): Left wrist brace provided Note regarding work provided Pap smear for cervical cancer screening 03/10/20 Drug-induced constipation 01/29/2025 Overview (01/29/2025): -prescribed senna (Senokot) 8.6 MG Assessment & Plan (01/29/2025 9:41 AM EDT): -prescribed senna (Senokot) 8.6 MG Back pain 01/29/2025 Overview (01/29/2025): Diffuse back pain likely due to macromastia. -referred to Physical Therapy 01/29/25 Assessment & Plan (01/29/2025 9:49 AM EDT): Diffuse back pain likely due to macromastia. -referred to Physical Therapy 01/29/25 Macromastia 01/29/2025 Overview (01/29/2025): Reports discomfort and back pain. Interested in surgery, but will trial therapy first. -referred to Physical Therapy 01/29/25 Assessment & Plan (01/29/2025 9:50 AM EDT): Reports discomfort and back pain. Interested in surgery, but will trial therapy first. -referred to Physical Therapy 01/29/25 Moderate episode of recurren t major depressive disorder (CMS/HCC) 01/29/2025 Overview (01/29/2025): Denies suicidial or homacidial ideation. Therapist and psychiatrist offered. Discussed therapeutic and pharmacological treatment options. With shared decision making agreed to trial medication. -Start sertraline (Zoloft) 25 MG 01/29/25 Assessment & Plan (01/29/2025 9:53 AM EDT): Denies suicidial or homacidial ideation. Therapist and psychiatrist offered. Discussed therapeutic and pharmacological treatment options. With shared decision making agreed to trial medication. -Start sertraline (Zoloft) 25 MG 01/29/25 Iron deficiency anemia secon pascual to inadequate dietary iron intake 12/23/2024 Overview (01/29/2025): Lab Results Component Value Date HGB 9.8 (L) 12/22/2024 -iron started 12/20/24 -ordering repeat CBC 01/29/25 Assessment & Plan (01/29/2025 9:53 AM EDT): Lab Results Component Value Date HGB 9.8 (L) 12/22/2024 -iron started 12/20/24 -ordering repeat CBC 01/29/25 Other specified health status 11/27/2024 Overview (01/29/2025): -next comprehensive annual evaluation due after 01/29/26 -referred to [facility] 01/29/25 -dental home is [facility] -[facility] care proxy given and filed 01/29/25 Assessment & Plan (01/29/2025 9:48 AM EDT): -next comprehensive annual evaluation due after 01/29/26 -referred to [facility] 01/29/25 -dental home is [facility] -[facility] care proxy given and filed 01/29/25 Prediabetes 11/27/2024 Overview (12/23/2024): Lab Results Component Value Date HGBA1C 6.0 12/22/2024 GLUCOSE 91 12/22/2024 -lifestyle modification discussed Obesity (BMI 35.0-39.9 without comorbidity) 11/05 Overview (01/29/2025): Discussed weight, diet, exercise with patient in relation to health conditions. Used motivational interviewing to illicit change talk and established initial goals with patient. -ordered HFP, FLP, and TSH 11/27/24, labs were largely unremarkable. Assessment & Plan (01/29/2025 9:54 AM EDT): Discussed weight, diet, exercise with patient in relation to health conditions. Used motivational interviewing to illicit change talk and established initial goals with patient. -ordered HFP, FLP, and TSH 11/27/24, labs were largely unremarkable. Assessment & Plan (11/27/2024 11:06 AM EST): -ordered HFP, FLP, and TSH 11/27/24 Neck nodule 11/27/2024 Overview (01/29/2025): -ordered CBC 11/27/24, which was significant for anemia -ordered neck soft tissue US 01/29/25 Assessment & Plan (01/29/2025 9:55 AM EDT): -ordered CBC 11/27/24, which was significant for anemia -ordered neck soft tissue US 01/29/25 Dietary counseling 11/27/2024 Assessment & Plan (01/29/2025 9:48 AM EDT): Dietary Recommendations: Fruits, vegetables, whole grains, protein foods, and fat-free or low-fat dairy products are healthy choices. Eat different types of protein foods in your diet. This can include seafood, lean meats, poultry, beans, peas, lentils, nuts, seeds, soy products, and eggs. Limit foods and beverages higher in added sugars, saturated fat, and sodium. Assessment & Plan (11/27/2024 11:04 AM EST): Dietary Recommendations: Fruits, vegetables, whole grains, protein foods, and fat-free or low-fat dairy products are healthy choices. Eat different types of protein foods in your diet. This can include seafood, lean meats, poultry, beans, peas, lentils, nuts, seeds, soy products, and eggs. Limit foods and beverages higher in added sugars, saturated fat, and sodium. Exercise counseling 11/27/2024 Assessment & Plan (01/29/2025 9:48 AM EDT): Exercise Recommendations: At least 150 minutes of moderate-intensity physical activity per week, or an equivalent combination of moderate- and vigorous-intensity activity Assessment & Plan (11/27/2024 11:04 AM EST): Exercise Recommendations: At least 150 minutes of moderate-intensity physical activity per week, or an equivalent combination of moderate- and vigorous-intensity activity Resolved Problems Problem Noted Date Diagnosed Date Resolved Date Influenza B 11/27/2024 12/23/2024 Assessment & Plan (11/27/2024 10:50 AM EST): COVID negative. Tested positive for Strep and Influenza B. No evidence of respiratory distress. Symptoms mild. No evidence of dehydration. -Prescribed oseltamivir (Tamiflu) 75 MG -Supportive care advised. -Isolation recommendations discussed. Acute streptococcal pharyngitis 11/27/2024 12/23/2024 Assessment & Plan (11/27/2024 10:36 AM EST): -rapid strep positive -amoxicillin 500mg bid for 10 days -droplet precautions discussed -supportive care discussed Encounters Date Type Department Care Team Description 09/27/2025 10:20 AM EST Office Visit [facility] [address] [place] [phone] Eduard Cannon MD Numbness and tingling in right hand (Primary Dx); Right hand pain; Right wrist pain 09/27/2025 Travel from Last 3 Months Family History Medical History Relation Name Comments Diabetes Father Heart disease Father Hypertension Father Diabetes Mother Heart disease Mother Hypertension Mother Relation Name Status Comments Father Mother Social History Tobacco Use Types Packs/Day Years Used Date Smoking Tobacco: Never Passive Smoke Exposure: Never Smokeless Tobacco: Never Tobacco Cessation:Counseling Given: Not Answered Depression Answer Date Recorded Patient Health Questionnaire-9 Score 9 01/29/2025 Patient Health Questionnaire-9 Score 9 01/29/2025 Last PHQ-9: Questionnaire Data Not on file 0 01/29/2025 Housing Stability Answer Date Recorded What is your housing situation today? I do not have housing (Staying with others, in a hotel, in a half-way, living outside on the street, on a beach, in a car, or in a park 01/29/[address] you li ve. Do you have problems with any of the following? None of the above 01/29/2025 Food Insecurity Answer Date Recorded Within the past 12 months, y ou worried that your food would run out before you got money to buy more: Never True 01/29/2025 Within the past 12 months,th e food you bought just didn't last and you didn't have enough money to get more: Never True Transportation Answer Date Recorded In the past 12 months, has l ack of transportation kept you from medical appts, meetings, work or from getting things needed for daily living? No 01/29/2025 Utilities Answer Date Recorded In the past 12 months, has t he electric, gas, oil or water company threatened to shut off services in your home? No 01/29/2025 Depression Answer Date Recorded Patient Health Questionnaire-2 Score 0 01/29/2025 Internet Access Answer Date Recorded Internet Access Q1 Yes 01/29/2025 Internet Access Q2 Not on file 01/29/2025 Comments Unknown Sex and Gender Information Value Date Recorded Sex Assigned at Female 10/26/2024 11:00 AM EST Legal Sex Female 1:52 PM EST Gender Identity Female 10/26/2024 11:00 AM EST Sexual Orientation Straight 10/26/2024 11 :00 AM EST Last Filed Vital Signs Vital Sign Reading Time Taken Comments Blood Pressure 110/70 09/27/2025 10:56 AM EST Pulse 87 09/27/2025 10:56 AM EST Temperature 36.2 C (97.1 F) 09/27/2025 10:56 AM EST Respiratory Rate 20 09/27/2025 10:56 AM EST Oxygen Saturation 98% 09/27/2025 10:56 AM EST Inhaled Oxygen Concentration - - Weight 83.9 kg (185 lb) 09/27/2025 10:56 AM EST Height 162.6 cm (5' 4 ) 09/27/2025 10:56 AM EST Body Mass Index 31.76 09/27/2025 10:56 AM EST Plan of Treatment Health Maintenance Due Date Last Done Comments Dental Oral Exam 1988 Dental Prophylaxis 1988 Dental X-Ray: Bitewings 1988 Dental X-Ray: Full Mouth 1988 Family Planning (PISQ) 01/25/2003 HPV Vaccines (1 - 3-dose series) 01/25/2003 Pap Smear 01/25/2009 Cervical Cancer Screening 01/25/2018 HPV/Cotest 01/25/2018 COVID-19 Vaccine (1 - 2024-2 6 season) 2025 Influenza Vaccine (#1) 2025 Depression Monitoring 08/01/2025 01/29/2025 , 01/29/2025 Diabetes: Hemoglobin A1C 12/22/2025 12/22/2024 Alcohol/Substance Use Screening 01/29/2026 01/29/2025 DTaP/Tdap/Td Vaccines (1 - Tdap) 01/29/2026 Postponed from 01/25 (Patient Refused) Hepatitis B Vaccines (1 of 3 - 19+ 3-dose series) 01/29/2026 Postponed from 01/03 (Patient Refused) SDOH Screening 01/29/2026 01/29/2025 Disability Screening 05/24/2026 05/24/2025 Tobacco Screening 09/27/2026 09/27/2025 Lipid Panel 12/22/2029 12/22/2024 Zoster Vaccines (1 of 2) 01/25/2038 RSV Patients and Patients Aged 60 years or older (1 - 1-dose 75+ series) 01/25/2063 HIV Screening Completed 12/22/2024 Hepatitis C Screening Completed 12/22/2024 HIB Vaccines Aged Out No longer eligi ble based on patient's age to complete this topic Hepatitis A Vaccines Aged Out No long er eligible based on patient's age to complete this topic IPV Vaccines Aged Out No longer eligi ble based on patient's age to complete this topic Meningococcal B Vaccine Aged Out No l onger eligible based on patient's age to complete this topic Meningococcal Vaccine Aged Out No elida rafael eligible based on patient's age to complete this topic Pneumococcal Vaccine: Pediatrics (0 to 5 Years) and At-Risk Patients (6 to 49) Years Aged Out No longer eligible b ased on patient's age to complete this topic RSV under 20 months Aged Out No longe r eligible based on patient's age to complete this topic Rotavirus Vaccines Aged Out No longer eligible based on patient's age to complete this topic Procedures Procedure Name Priority Date/Time Associated Diagnosis Comments HEPATITIS C AB W/REFL TO HCV RNA, QN, PCR Routine 12/22/2024 8:30 AM EST Routine screening for STI (sexually transmitted infection) HIV 1/2 ANTIGEN/ANTIBODY, FOURTH GENERATION W/RFL Routine 12/22/2024 8:30 AM EST Routine screening for STI (sexually transmitted infection) HEMOGLOBIN A1C Routine 12/22/2024 8:30 AM EST Prediabetes LIPID PANEL, STANDARD Routine 12/22/2024 8:30 AM EST Obesity (BMI 35.0-39.9 without comorbidity) from Last 3 Months or Most Recently Relevant to Health Maintenance Results * Hepatitis C Antibody with Reflex to HCV, RNA, Quantitative, Real-Time PCR (12/22/2024 8:30 AM EST) Hepatitis C Antibody Nonreactive Nonreactive [facility] Comment:Antibodies to HCV no t detected; does not exclude early acuteHCV infection. Blood Venous blood specimen / Unknown 12/22/2024 8:30 AM EST 12/22/2024 11:01 AM EST us Lakshmi Nichols MD LAB BLOOD ORDERABLES Final Result [facility] [address] [place] [phone] * HIV-1/2 Antigen and Antibodies, Fourth Generation, with Reflexes (12/22/2024 8:30 AM EST) HIV AB/AG Nonreactive Nonreactive [facility] Comment:HIV-1 p24 Ag and/or HIV-1/HIV-2 Ab not detected.A test result that is nonreactive does not exclude thepossibility of exposure to or infection with HIV-1 and/orHIV-2. Nonreactive results in this assay for individualswith prior exposure to HIV-1 and/or HIV-2 may be due toantigen and antibody levels that are below the limit ofdetection of this assay.The [employer] HIV Ag/Ab Combo assay result andsupplemental assay results should be interpreted inconjunction with the patient's clinical presentation,history and other laboratory results. If the results areinconsistent with clinical evidence, additional testing issuggested to confirm the result. Blood Venous blood specimen / Unknown 12/22/2024 8:30 AM EST 12/22/2024 11:01 AM EST Lakshmi Nichols MD LAB BLOOD ORDERABLES Final Result [facility] [address] [place] [phone] * Hemoglobin A1c (12/22/2024 8:30 AM EST) Hemoglobin A1c 6.0 <6.0 % [facility] Comment:Hemoglobin A1C Refer ence Range Adults: 4.8 - 6.0 % Non diabetic: < 6.0 % Goal: < 7.0 %Additional Action Suggested: > 8.0 %Note: Hemoglobin A1c results are invalid for patients with abnormal amounts of HbF. Blood transfusions may impact the HbA1c concentration in the patient sample. Estimated Average Glucose 126 mg/dL [facility] Comment:eAG = Estimated ave rage glucose which is %A1C expressed asaverage glucose, using the formula of the G4P-[id number] Glucose study (ADAG), Diabetes Care, Vol.31,#8,2007 Blood Venous blood specimen / Unknown 12/22/2024 8:30 AM EST 12/22/2024 11:01 AM EST Lakshmi Nichols MD LAB BLOOD ORDERABLES Final Result Performing Organization Address [facility] Co de Phone Number [facility] [address] [place] [phone] [phone] * Lipid Panel, Standard (12/22/2024 8:30 AM EST) Triglycerides 64 <150 mg/dL [facility] Comment:Desirable Triglyceri de: less than 150 mg/dLBorderline High Triglyceride 150-199 mg/dLHigh Triglyceride: 200-499 mg/dLVery High Triglyceride: greater than or equal to 5OO mg/dL Cholesterol 138 <200 mg/dL [facility] Comment:Desirable Cholestero l: less than 200 mg/dLBorderline High Cholesterol: 200-239 mg/dLHigh Cholesterol: greater than 239 mg/dL LDL Cholesterol Calculated 81 <100 mg/dL [facility] Comment:Desirable LDL: less than 100 mg/dLNear Optimal/Above Optimal LDL: 110- 129 mg/dLBorderline High LDL: 130-159 mg/dLHigh LDL: 160-189 mg/dLVery High LDL: greater than or equal to 190 mg/dL HDL Cholesterol 45 >40 mg/dL [facility] Comment:Desirable HDL: great er than 40 mg/dL Note: This HDL assay may give artificially low results in patients with liver disease. Blood Venous blood specimen / Unknown 12/22/2024 8:30 AM EST 12/22/2024 11:01 AM EST Lakshmi Nichols MD LAB BLOOD ORDERABLES Final Result Performing Organization Address 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
--- OUTSIDE RECORDS SUMMARY | 2025-10-25 15:50 | XMS_ITS | Encounter Summary ---
Author Organization [employer] Address [address] [facility] [address] [place] [address] Care Team Providers Care Video Tape Duplicator Name Role Phone Lakshmi Nichols MD Primary Care Provider [phone]- [phone] Encounter Details Date Type Department Care Team ([facility] Contact Info) Description 12/23/2024 Orders Only [facility] [address] [place] [address] Lakshmi Nichols MD [address] [place] [address] Anemia, unspecified type (Primary Dx) Social History Tobacco Use Types Packs/Day Years Used Date Smoking Tobacco: Never Passive Smoke Exposure: Never Smokeless Tobacco: Never Comments Unknown Sex and Gender Information Value Date Recorded Sex Assigned at Female 10/26/2024 11:00 AM EST Legal Sex Female 1:52 PM EST Gender Identity Female 10/26/2024 11:00 AM EST Sexual Orientation Straight 10/26/2024 11 :00 AM EST documented as of this encounter Plan of Treatment Not on file documented as of this encounter Procedures Procedure Name Priority Date/Time Associated Diagnosis Comments URINALYSIS, COMPLETE, WITH REFLEX TO CULTURE Routine 05/30/2025 6:00 PM EDT Anemia, unspecified type CBC WITH AUTO DIFFERENTIAL Routine 05/30/2025 6:00 PM EDT Anemia, unspecified type HCG, TOTAL, QN Routine 05/30/2025 6:00 PM EDT Anemia, unspecified type COMPREHENSIVE METABOLIC PANEL Routine 05/30/2025 6:00 PM EDT Anemia, unspecified type CULTURE, URINE, ROUTINE Routine 05/28/2025 12:00 AM EDT Anemia, unspecified type URINALYSIS, COMPLETE, WITH REFLEX TO CULTURE Routine 05/27/2025 11:50 PM EDT Anemia, unspecified type CBC WITH AUTO DIFFERENTIAL Routine 05/27/2025 9:53 PM EDT Anemia, unspecified type COMPREHENSIVE METABOLIC PANEL Routine 05/27/2025 9:53 PM EDT Anemia, unspecified type documented in this encounter Results * hCG, Total, Quantitative (05/30/2025 6:00 PM EDT) HCG Quantitative <2 mIU/mL [facility] Comment:Weeks post LMP Appro ximate hCG(Last Menstrual Period) Range (mIU/ml)3 - 4 weeks 9 - 1304 - 5 weeks 75 - 2,6005 - 6 weeks 850 - 20,8006 - 7 weeks 4000 - 100,2007 - 12 weeks 11,500 - 289,93250 - 16 weeks 18,300 - 137,60831 - 29 weeks (2nd trimester) 1,400 - 53,16635 - 41 weeks (3rd trimester) 940 - 60,000The [place] B- hCG assay is used for the early detection ofpregnancy; it cannot be used to diagnose any conditionunrelated to . If a B-hCG level is not supportedby the clinical evidence, results should be confirmed by analternative method (qualitative urine hCG, for example). 05/30/2025 6:00 PM EDT 05/30/2025 6:23 PM EDT us Generic External Data Provider LAB BLOOD ORDERAB LES Final Result [facility] [address] [place] [address] [phone] * (ABNORMAL) Comprehensive Metabolic Panel (05/30/2025 6:00 PM EDT) Sodium 138 135 - 145 mmol/L [facility] Potassium 3.4 3.3 - 5.1 mmol/L [facility] Chloride 107 96 - 108 mmol/L [facility] Carbon Dioxide 24 22 - 29 mmol/L [facility] Anion Gap 10(L) 12 - 20 [facility] Urea Nitrogen (BUN) 6(L) 9 - 16 mg/dL [facility] Creatinine, Serum 0.69 0.5 - 1.4 mg/dL [facility] Creatinine Clr Calc Pharmacy 118.2 [facility] Comment:Provided height and weight: 162.56 cm,85.6 kg.eGFR (calculated from the MDRD study equation) and eCrCl(calculated from the Cockcroft-Gault equation) are based ondifferent parameters and may not yield comparable results.If eCrCl result is absurd, please check patient'sheight/weight. Estimated Glomerular Filt Rate >60 [facility] Comment:Chronic Kidney Disea se: Estimated GFR < 60 mL/min/[id number] Kidney Disease: Estimated GFR < 15 mL/min/1.73m2 Glucose 106 60 - 115 mg/dL [facility] Calcium 8.5 8.4 - 10.2 mg/dL [facility] Bilirubin, Total 0.2 0.0 - 1.0 mg/dL [facility] Aspartate Amino Transferase 29 5 - 31 U/L [facility] Alanine Aminotransferase 33(H) 0 - 31 U/L [facility] Total Protein 7.3 6.5 - 8.0 g/dL [facility] Albumin Level 3.9 3.5 - 5.0 g/dL [facility] Alkaline Phosphatase 96 39 - 117 U/L [facility] 05/30/2025 6:00 PM EDT 05/30/2025 6:23 PM EDT us Generic External Data Provider LAB BLOOD ORDERAB LES Final Result [facility] [address] [place] [phone] * (ABNORMAL) Urinalysis, Complete, with Reflex to Culture (05/30/2025 6:00 PM EDT) Color Urine [place] [facility] Appearance Urine Clear [facility] PH 5.0 5.0 - 9.0 [facility] Glucose Urine UA See Note Negative mg/dL [facility] Comment:Urine pigment obscur ed dipstick results. Urine Blood Negative Negative [facility] Specific [place] - Urine 1.015 1.005 - 1.025 [facility] Urine Protein 30 (1+)(A) Neg-Trace mg/dL [facility] Urine Ketones Negative Negative mg/dL [facility] Nitrite Urine See Note Negative [facility] Comment:Urine pigment obscur ed dipstick results. Leukocyte Esterase Urine See Note Negative [facility] Comment:Urine pigment obscur ed dipstick results. RBC Urine 0-2 0 - 2 /HPF [facility] Urine WBC 6-10(A) 0 - 5 /HPF [facility] Urine Squamous Epithelial Cell 3-5 0 - 2 /HPF [facility] TRANSITIONAL (EPITHELIAL) CELLS (#/HPF) IN URINE Present [facility] Urine Bacteria Trace None Seen [facility] Hyaline Casts, Urine 0-2 0 - 2 /LPF [facility] 05/30/2025 6:00 PM EDT 05/30/2025 6:23 PM EDT Narrative [facility] - 05/30/2025 6:42 PM EDT [id number], Clean Catch us Generic External Data Provider LAB URINE ORDERAB LES Final Result [facility] [address] [place] [phone] * (ABNORMAL) CBC auto differential (05/30/2025 6:00 PM EDT) White Blood Count 12.0(H) 4.8 - 10.8 X10*3/uL [facility] Red Blood Count 4.95 4.20 - 5.50 X10*6/uL [facility] Hemoglobin 10.9(L) 12.0 - 16.0 g/dl [facility] Hematocrit 35.9(L) 37.0 - 47.0 % [facility] Mean Corpuscular Volume 72.5(L) 80.0 - 98.0 fL [facility] Mean Corpuscular Hemoglobin 22.0(L) 27.0 - 33.0 pg [facility] Mean Corpuscular HGB Conc 30.4(L) 31.0 - 35.0 g/dl [facility] Red Cell Distribution Width 18.3(H) 11.0 - 16.0 % [facility] Platelet Count 350 160 - 400 X10*3/uL [facility] Mean Platelet Volume 8.6(L) 9.4 - 12.3 fL [facility] Neutrophils Percent Auto 69.0 45 - 73 % [facility] Imm Gran Pct Auto 0.5(H) 0.0 - 0.4 % [facility] Lymphocytes Percent Auto 23.2 20 - 40 % [facility] Monocytes Percent Auto 6.1 2 - 11 % [facility] Eosinophils Percent Auto 0.7 0 - 4 % [facility] Basophils Percent Auto 0.5 0 - 2 % [facility] NRBC Pct Auto 0.0 0.0 - 0.2 /100WBC [facility] Neutrophils Absolute Auto 8.3 2.0 - 8.3 x10*3/uL [facility] Imm Gran Abs Auto 0.06(H) 0.00 - 0.03 X10*3/uL [facility] Lymphocytes Absolute Auto 2.8 1.2 - 4.9 X10*3/uL [facility] Monocytes Absolute Auto 0.7 0.1 - 1.2 X10*3/uL [facility] Eosinophils Absolute Auto 0.1 0.0 - 0.4 X10*3/uL [facility] Basophils Absolute Auto 0.1 0.0 - 0.2 X10*3/uL [facility] NRBC Abs Auto 0.000 0.0 - 0.012 X10*3/uL [facility] 05/30/2025 6:00 PM EDT 05/30/2025 6:23 PM EDT Generic External Data Provider LAB BLOOD ORDERAB LES Final Result Performing Organization Address [facility] Co de Phone Number [facility] [address] [place] [phone] * Culture, Urine, Routine (05/28/2025 12:00 AM EDT) Urine Urine specimen obtained by clean catch procedure / Unknown 05/28/2025 05/28/2025 Comment:UACC Narrative [facility] - 05/29/2025 11:35 AM EDT Strep agalactiae (Grp B) Quant 10,000 to 50,000 cfu/mL Susc N/A Susceptibility not routinely performed on this isolate. Specimen Source: Urine clean catch Generic External Data Provider LAB MICROBIOLOGY - GENERAL ORDERABLES Final Result Performing Organization Address [facility] de Phone Number [facility] [address] [place] [phone] * (ABNORMAL) Urinalysis, Complete, with Reflex to Culture (05/27/2025 11:50 PM EDT) Color Urine Yellow [facility] Appearance Urine Clear [facility] PH 5.5 5.0 - 9.0 [facility] Glucose Urine UA Negative Negative mg/dL [facility] Urine Blood Negative Negative [facility] Specific [place] - Urine 1.020 1.005 - 1.025 [facility] Urine Protein Negative Neg-Trace mg/dL [facility] Urine Ketones Negative Negative mg/dL [facility] Nitrite Urine Negative Negative [facility] Leukocyte Esterase Urine Moderate (2+)(A) Negative [facility] RBC Urine 0-2 0 - 2 /HPF [facility] Urine WBC 21-50(A) 0 - 5 /HPF [facility] Urine Squamous Epithelial Cell 3-5 0 - 2 /HPF [facility] Urine Bacteria 1+ None Seen [facility] Hyaline Casts, Urine 0-2 0 - 2 /LPF [facility] 05/27/2025 11:5 0 PM EDT 05/27/2025 11:53 PM EDT Narrative [facility] - 05/28/2025 12:03 AM EDT [id number], Clean Catch us Generic External Data Provider LAB URINE ORDERAB LES Final Result [facility] [address] [place] [phone] * (ABNORMAL) Comprehensive Metabolic Panel (05/27/2025 9:53 PM EDT) Sodium 139 135 - 145 mmol/L [facility] Potassium 3.8 3.3 - 5.1 mmol/L [facility] Chloride 108 96 - 108 mmol/L [facility] Carbon Dioxide 24 22 - 29 mmol/L [facility] Anion Gap 11(L) 12 - 20 [facility] Urea Nitrogen (BUN) 9 9 - 16 mg/dL [facility] Creatinine, Serum 0.75 0.5 - 1.4 mg/dL [facility] Creatinine Clr Calc Pharmacy 108.5 [facility] Comment:Provided height and weight: 162.56 cm,85.2 kg.eGFR (calculated from the MDRD study equation) and eCrCl(calculated from the Cockcroft-Gault equation) are based ondifferent parameters and may not yield comparable results.If eCrCl result is absurd, please check patient'sheight/weight. Estimated Glomerular Filt Rate >60 [facility] Comment:Chronic Kidney Disea se: Estimated GFR < 60 mL/min/[id number] Kidney Disease: Estimated GFR < 15 mL/min/1.73m2 Glucose 113 60 - 115 mg/dL [facility] Calcium 8.2(L) 8.4 - 10.2 mg/dL [facility] Bilirubin, Total 0.1 0.0 - 1.0 mg/dL [facility] Aspartate Amino Transferase 31 5 - 31 U/L [facility] Alanine Aminotransferase 31 0 - 31 U/L [facility] Total Protein 7.0 6.5 - 8.0 g/dL [facility] Albumin Level 3.8 3.5 - 5.0 g/dL [facility] Alkaline Phosphatase 88 39 - 117 U/L [facility] 05/27/2025 9:53 PM EDT 05/27/2025 9:55 PM EDT us Generic External Data Provider LAB BLOOD ORDERAB LES Final Result [facility] [address] [place] [phone] * (ABNORMAL) CBC auto differential (05/27/2025 9:53 PM EDT) White Blood Count 11.9(H) 4.8 - 10.8 X10*3/uL [facility] Red Blood Count 4.60 4.20 - 5.50 X10*6/uL [facility] Hemoglobin 10.2(L) 12.0 - 16.0 g/dl [facility] Hematocrit 33.0(L) 37.0 - 47.0 % [facility] Mean Corpuscular Volume 71.7(L) 80.0 - 98.0 fL [facility] Mean Corpuscular Hemoglobin 22.2(L) 27.0 - 33.0 pg [facility] Mean Corpuscular HGB Conc 30.9(L) 31.0 - 35.0 g/dl [facility] Red Cell Distribution Width 18.3(H) 11.0 - 16.0 % [facility] Platelet Count 329 160 - 400 X10*3/uL [facility] Mean Platelet Volume 8.7(L) 9.4 - 12.3 fL [facility] Neutrophils Percent Auto 63.2 45 - 73 % [facility] Imm Gran Pct Auto 0.3 0.0 - 0.4 % [facility] Lymphocytes Percent Auto 27.9 20 - 40 % [facility] Monocytes Percent Auto 7.3 2 - 11 % [facility] Eosinophils Percent Auto 0.8 0 - 4 % [facility] Basophils Percent Auto 0.5 0 - 2 % [facility] NRBC Pct Auto 0.0 0.0 - 0.2 /100WBC [facility] Neutrophils Absolute Auto 7.5 2.0 - 8.3 x10*3/uL [facility] Imm Gran Abs Auto 0.04(H) 0.00 - 0.03 X10*3/uL [facility] Lymphocytes Absolute Auto 3.3 1.2 - 4.9 X10*3/uL [facility] Monocytes Absolute Auto 0.9 0.1 - 1.2 X10*3/uL [facility] Eosinophils Absolute Auto 0.1 0.0 - 0.4 X10*3/uL [facility] Basophils Absolute Auto 0.1 0.0 - 0.2 X10*3/uL [facility] NRBC Abs Auto 0.000 0.0 - 0.012 X10*3/uL [facility] 05/27/2025 9:53 PM EDT 05/27/2025 9:55 PM EDT us Generic External Data Provider LAB BLOOD ORDERAB LES Final Result [facility] [address] [place] [phone] documented in this encounter Visit Diagnoses Diagnosis Anemia, unspecified type- Primary documented in this encounter Care Teams Video Tape Duplicator Relationship Specialty Start Date End Date Lakshmi Nichols MD [address] [place] [phone] PCP - General Family Medicine 11/27/24 documented as of this encounter
== END 2025-10-25 12:42 | disposition home or self-care (01) ==
LOC: HO.NEURO 12:41
PROVIDERS: PCP Family Medicine; Visit Provider Emergency Medicine
DX: M79.641 Pain in right hand (principal); M25.531 Pain in right wrist; R20.0 Anesthesia of skin; R20.2 Paresthesia of skin
CPT/HCPCS: 95886; 95911

== ENCOUNTER → 2025-10-25 13:51 | Outpatient (BNV) | payer MEDICAID, SELFPAY | PROVIDERS: PCP Family Medicine; Visit Provider Psychiatry & Neurology Neurology | DX: G56.01 Carpal tunnel syndrome, right upper limb (principal) | CPT/HCPCS: 95886; 95911 ==